=== PATIENT | male | born 1965 | race Caucasian/White ===

== ENCOUNTER 2016-10-24 14:40 | Emergency (ER) | payer OTHER ==
[~2016-10-24] VITALS: Ht 170.2 cm; Wt 104.3 kg
[~2016-10-24 14:40] MED LIST: ASPIRIN325 M2 PO; CIPROFLOXACIN500 MG PO; LISINOPRIL10 MG PO; METOPROLOL SUCC25 MG PO; SIMVASTATIN40 MG PO
--- NOTE | 2016-10-24 15:06 | ED CARDIAC/CP/PALPITATIONS ---
History of Present Illness General Chief Complaint: Chest Pain Stated Complaint: CHEST PAIN, FELT SOMTHING POP ON L SIDE OF CHEST Source: patient, family Exam Limitations: no limitations Allergies Coded Allergies: propoxyphene (From DARVON) (RASH - WAS SMALL 10/24/16) venom-honey bee (ANAPHYLAXIS 10/24/16) Triage Note: PT TO ED FOR COUGH AND "SOMETHING POPPED ON MY L SIDE WHEN I WAS COUGHING LAST NIGHT" C/O 10/10 L LOWER CHEST PAIN ON COUGH AND INSPIRATION, REPRODUCIBLE. Triage Nurses Notes Reviewed? yes Onset: Abrupt Duration: hour(s): (FEW) Timing: single episode today Quality/Severity: severe, sharp Location: LEFT LOWER RIBS Radiation: no radiation Associated Symptoms: COUGH HPI: This is a 51-year-old male with worsening respiratory symptoms for the past 1 week diagnosed with bronchitis on by his PCP who presents to the ER with chief complaint of exquisite left-sided rib pain since yesterday after having violent episodes of coughing. He is on Biaxin and prednisone from his primary care doctor and was very severe and his primary care doctor advised him to go to a walk-in clinic. He states at the walk-in clinic they evaluated him and told him to come here for further evaluation. Patient denies any fever or chills. He denies any productive cough. He is a nonsmoker. No previous history of asthma or COPD. Pain is worse with deep inspiration or movement. (JUAN COOPER,[facility]) Vital Signs & Intake/Output Vital Signs & Intake/Output Vital Signs Date Time Temp Pulse Resp B/P Pulse O2 O2 Flow FiO2 Ox Delivery Rate 10/24 2010 97.7 81 18 137/76 92 10/24 1830 80 20 144/82 97 10/24 1730 97.0 80 20 142/80 96 Room Air 10/24 1601 94 10/24 1458 98.1 99 16 144/90 95 Room Air ED Intake and Output 10/25 0000 10/24 1200 Intake Total 120 Output Total 300 Balance -180 Intake, Oral 120 Output, Urine 300 Patient 230 lb Weight Reconcile Medications Albuterol Sulfate (Proventil Hfa) (Unknown Strength) HFA.AER.AD (Unknown Dose) UNKNOWN (Reported) Albuterol Sulfate (Ventolin Hfa) 90 MCG HFA.AER.AD 2 PUF INH Q4-6 PRN PRN WHEEZE Aspirin (Aspirin*) 325 MG TABLET 1 TAB PO DAILY HEART/BLOOD (Reported) Clarithromycin 500 MG TABLET 1 TAB PO BID ANTIBIOTIC (Reported) Ibuprofen 800 MG TABLET 1 TAB PO TID PAIN Lisinopril 10 MG TABLET 1 TAB PO DAILY BP (Reported) Metoprolol Succinate 50 MG TAB.ER.24H 1 TAB PO DAILY HEART/BP (Reported) Omeprazole 40 MG CAPSULE.DR 1 CAP PO DAILY GI (Reported) Oxycodone HCl/Acetaminophen (Percocet 5-325 MG Tablet) 5 MG-325 MG TABLET 1 TAB PO 4XDP PRN PAIN TEN...[id number] Prednisone (Unknown Strength) TABLET (Unknown Dose) PO AD STEROID TAPER ( Reported) Promethazine/Phenyleph/Codeine (Promethazine Vc-Codeine Syrup) 6.25 MG-5 MG-10 MG/5 ML SYRUP 5-10 ML PO Q6 COUGH ONE HUNDRED TWENTY CC'S.... [id number] Simvastatin (Simvastatin*) 40 MG TABLET 1 TAB PO QPM CHOLESTEROL (Reported) Tadalafil (Cialis) 5 MG TABLET 1 TAB PO DAILY BPH (Reported) (MIRELLA COOPER,KHUSHBOO Brennan) Past History Travel History Traveled to [place] past 21 day No Medical History Any Pertinent Medical History? see below for history Neurological: NONE EENT: NONE Cardiovascular: hypertension, HIGH CHOLESTEROL Respiratory: bronchitis Gastrointestinal: NONE Hepatic: NONE Renal: NONE Musculoskeletal: NONE Psychiatric: NONE Endocrine: NONE Blood Disorders: NONE Cancer(s): NONE Surgical History Surgical History: non-contributory Psychosocial History Who do you live with Mother Services at Home None What is your primary language Hebrew Tobacco Use: Never used ETOH Use: denies use Illicit Drug Use: denies illicit drug use Family History Family History, If Any: FATHER ([place] at age 61). grandfather (cancer of all glands). grandmother (cancer in the kidney and brain). Hx Contributory? Yes (JUAN COOPER,TOMEKA) Review of Systems Review of Systems Constitutional: Denies: chills, fever. EENTM: Reports: no symptoms. Respiratory: Reports: cough, short of breath. Denies: sputum production. Cardiovascular: Reports: chest pain. GI: Denies: abdominal pain. Genitourinary: Reports: no symptoms. Musculoskeletal: Reports: no symptoms. Skin: Reports: no symptoms. Neurological/Psychological: Reports: anxiety. Hematologic/Endocrine: Denies: bruising, bleeding, polyuria, polydipsia. Immunologic/Allergic: Reports: no symptoms. All Other Systems: Reviewed and Negative (JUAN COOPER,[place]OME[place]) Physical Exam Physical Exam General Appearance: well developed/nourished, alert, awake, anxious, severe distress, obese Head: atraumatic, normal appearance Eyes: Bilateral: normal appearance, PERRL, EOMI. Ears, Nose, Throat: normal pharynx, normal ENT inspection, hearing grossly normal Neck: normal inspection, supple, full range of motion Respiratory: normal breath sounds, LEFT CHEST WALL TENDERNESS Cardiovascular: regular rate/rhythm Peripheral Pulses: 2+ radial (R), 2+ radial (L) Gastrointestinal: normal bowel sounds, soft, non-tender Extremities: normal inspection, normal capillary refill, normal range of motion, no edema Neurologic/Psych: no motor/sensory deficits, awake, alert, oriented x 3 Skin: intact, normal color, warm/dry Core Measures ACS in differential dx? No Severe Sepsis Present: No Septic Shock Present: No (TOMEKA MARTINEZ MD) Progress Differential Diagnosis: pneumothorax, pulmonary embolism, rib fracture Diagnostic Imaging: Viewed by Me: Radiology Read, CT Scan. Discussed w/RAD: Radiology Read, CT Scan. Radiology Impression: PATIENT: MADELYN MARQUES PRESENT AGE: 51 PATIENT ACCOUNT NO: [id number] : 65 LOCATION: [facility] ORDERING PHYSICIAN: TOMEKA MARTINEZ MD SERVICE DATE: 10/24/16 EXAM TYPE: RAD - XRY-RIBS UNILATERAL-LEFT EXAMINATION: XR RIBS, LEFT CLINICAL INFORMATION: Left-sided rib pain and cough. COMPARISON: Chest x-ray 10/24/2016. TECHNIQUE: 4 views of the left-sided ribs were obtained. FINDINGS: No acute left-sided rib fractures are identified. There is no appreciable cortical destruction or periosteal reaction of the left-sided ribs. Soft tissues appear unremarkable. IMPRESSION: No acute left-sided rib fractures. DICTATED BY: BIBI ESCOBEDO MD DATE/TIME DICTATED:10/24/161600 LIBRARY MANAGER:SUSU DATE/TIME TRANSCRIBED:10/24/161600 CONFIDENTIAL, DO NOT COPY WITHOUT APPROPRIATE AUTHORIZATION. <Electronically signed in Other Vendor System> SIGNED BY: FANNY COOPER,BIBI 10/24/16 1606 Initial ED EKG: NSR Hand-Off Endorsed To: KHUSHBOO VU MD Endorsed Time: 1918 Pending: CT (PE ANGIO) (JUAN COOPER,TOMEKA) Plan of Care: Orders Procedure Date/time Status COMPREHENSIVE METABOLIC PANEL 10/24 1531 Complete CBC WITHOUT DIFFERENTIAL 10/24 1531 Complete RT ED ORDERS 10/24 1528 Active EKG 10/24 1441 Active Current Medications Sig/Indigo Start time Last Medication Dose Stop Time Status Admin Diazepam 2 MG ONCE ONE 10/24 1630 CAN (Valium) 10/24 1631 Diazepam 5 MG ONCE ONE 10/24 1530 CAN (Valium) 10/24 1531 Ketorolac 60 MG ONCE ONE 10/24 1530 CAN Tromethamine 10/24 1531 (Toradol) Laboratory Tests 10/24/16 1610: Anion Gap 12, Estimated GFR > 60, BUN/Creatinine Ratio 20.0, Glucose 128 H, Calcium 9.5, Total Bilirubin 0.7, AST 31, ALT 64, Alkaline Phosphatase 73, Total Protein 7.1, Albumin 4.3, Globulin 2.8, Albumin/Globulin Ratio 1.5, CBC w Diff NO MAN DIFF REQ, RBC 5.49, MCV 85.9, MCH 28.5, RDW 13.8, MPV 8.0, Gran % 73.2, Lymphocytes % 17.7 L, Monocytes % 8.4, Eosinophils % 0, Basophils % 0.7, Absolute Granulocytes 11.9 H, Absolute Lymphocytes 2.9, Absolute Monocytes 1.4 H, Absolute Eosinophils 0, Absolute Basophils 0.1, PUBS MCHC 33.2 Radiology Impression: ct angio, chest... no pe. Comments: PATIENT: MADELYN MARQUES PRESENT AGE: 51 PATIENT ACCOUNT NO: [id number] : 65 LOCATION: [facility] ORDERING PHYSICIAN: TOMEKA MARTINEZ MD SERVICE DATE: 10/24/16-1625 EXAM TYPE: CAT - CTA CHEST-PULMONARY EMBOLISM EXAMINATION: CT ANGIOGRAM CHEST WITH AND WITHOUT CONTRAST (CT PULMONARY ANGIOGRAM FOR PE) CLINICAL INFORMATION: Severe left-sided pleuritic pain. COMPARISON: No prior chest CT scan for comparison. TECHNIQUE: Prior to contrast administration, noncontrast localization images were obtained. Subsequently, multidetector volumetric imaging was performed from the thoracic inlet to below the diaphragms following the administration of 85 mL Optiray 350 intravenous contrast. No contrast reaction reported. Sagittal, coronal, and MIP oblique sagittal reformatted images were obtained on the CT workstation, uploaded to PACS, and reviewed. Total exam dose-length product 563 mGy-cm. FINDINGS: QUALITY OF STUDY/CONTRAST BOLUS: Contrast bolus timing was mildly suboptimal, with timing more optimally tailored for aortic evaluation. PULMONARY ARTERIES: No convincing pulmonary embolism. No ectasia of the main pulmonary artery. THORACIC AORTA: No aneurysm or dissection. LUNG: There is mild peribronchial thickening bilaterally. Mild dependent parenchymal changes and mild hazy opacification within the left lung base, favored to represent atelectasis, however subtle left lower lobe pneumonitis is not excluded. PLEURA: No pleural effusion or pneumothorax. MEDIASTINUM: Normal heart size. Scattered coronary artery calcification. No pericardial effusion. No hilar or mediastinal lymphadenopathy. No evidence of septal bowing or right heart strain. CHEST WALL/AXILLA: No axillary or internal mammary lymphadenopathy. OSSEOUS STRUCTURES: No acute or suspicious osseous abnormality. UPPER ABDOMEN: Hepatic steatosis. No acute intra-abdominal abnormalities. No reflux of contrast into the hepatic veins to suggest elevated right heart pressures. IMPRESSION: 1. Somewhat suboptimal contrast bolus timing. No evidence of pulmonary embolism. 2. Bibasilar dependent opacification consistent with atelectasis. Asymmetric mild groundglass opacification of the left lung base may represent atelectasis or subtle pneumonia. 3. Scattered coronary artery calcification. 4. Hepatic steatosis. DICTATED BY: JOSE FRANK MD DATE/TIME DICTATED:10/24/161858 LIBRARY MANAGER:SUSU DATE/TIME TRANSCRIBED:10/24/161858 CONFIDENTIAL, DO NOT COPY WITHOUT APPROPRIATE AUTHORIZATION. <Electronically signed in Other Vendor System> SIGNED BY: JOSE FRANK MD 10/24/161931 (MIRELLA COOPER,KHUSHBOO Brennan) Departure Departure Disposition: STILL A PATIENT Condition: Stable Clinical Impression Primary Impression: Bronchitis Secondary Impressions: Contusion of rib on left side Referrals: SIENA COOPER,EUGENE Marti (PCP/Family) Departure Forms: Customer Survey General Discharge Information (JUAN COOPER,TOMEKA) Departure Prescriptions: Current Visit Scripts Ibuprofen 1 TAB PO TID #90 TAB Oxycodone HCl/Acetaminophen (Percocet 5-325 MG Tablet) 1 TAB PO 4XDP PRN PAIN #10 TAB TEN...[id number] Albuterol Sulfate (Ventolin Hfa) 2 PUF INH Q4-6 PRN PRN WHEEZE #1 INHAL Ref 1 Promethazine/Phenyleph/Codeine (Promethazine Vc-Codeine Syrup) 5-10 ML PO Q6 #120 ML ONE HUNDRED TWENTY CC'S.... [id number] PA/[employer]PER[employer] Co-Sign Statement Statement: ED Attending supervision documentation- x] I saw and evaluated the patient. I have also reviewed all the pertinent lab results and diagnostic results. I agree with the findings and the plan of care as documented in the PA's/[employer]'s documentation. pt with reproducible chest wall tenderness. safe for discharge. [] I have reviewed the ED Record and agree with the PA's/[employer]'s documentation. [] Additions or exceptions (if any) to the PAs/SUPER[employer]'s note and plan are summarized below: [] (MIRELLA COOPER,KHUSHBOO Brennan) Critical Care Note Critical Care Note Critical Care Time: non-applicable (JUAN COOPER,TOMEKA)
--- NOTE | 2016-10-24 15:22 | RADIOLOGY REPORT ---
EXAMINATION: XR CHEST CLINICAL INFORMATION: Cough. COMPARISON: Chest radiography 07/12/2012. TECHNIQUE: 2 views of the chest were obtained. FINDINGS: No new significant abnormality is noted involving the heart, lungs, mediastinum, bony thorax or soft tissues. IMPRESSION: No evidence of pneumonia.
--- NOTE | 2016-10-24 16:06 | RADIOLOGY REPORT ---
EXAMINATION: XR RIBS, LEFT CLINICAL INFORMATION: Left-sided rib pain and cough. COMPARISON: Chest x-ray 10/24/2016. TECHNIQUE: 4 views of the left-sided ribs were obtained. FINDINGS: No acute left-sided rib fractures are identified. There is no appreciable cortical destruction or periosteal reaction of the left-sided ribs. Soft tissues appear unremarkable. IMPRESSION: No acute left-sided rib fractures.
[2016-10-24 16:28] LABS: ABSOLUTE BASOPHIL COUNT 0.1 /CUMM (0.0-0.2); ABSOLUTE EOSINOPHIL COUNT 0 /CUMM (0.0-0.7); ABSOLUTE GRANULOCYTE CT 11.9 /CUMM (1.4-6.5); ABSOLUTE LYMPH COUNT 2.9 /CUMM (1.2-3.4); ABSOLUTE MONOCYTE COUNT 1.4 /CUMM (0.10-0.60); BASOPHIL % 0.7 % (0.0-2.0); EOSINOPHIL % 0 % (0-5); GRANULOCYTE % 73.2 % (42.2-75.2); HEMATOCRIT 47.2 % (42-52); MEAN CORPUSCULAR HGB 28.5 PG (27.0-31.0); MEAN CORPUSCULAR HGB CONC 33.2 G/DL (33.0-37.0); MEAN CORPUSCULAR VOLUME 85.9 FL (80.0-94.0); PLATELET COUNT 316 /CUMM (130-400); RBC DISTRIBUTION WIDTH 13.8 % (11.5-14.5); RED BLOOD CELL CT 5.49 /CUMM (4.70-6.10); WHITE BLOOD CELL COUNT 16.3 /CUMM (4.8-10.8)
[2016-10-24] MEDS ORDERED: LISINOPRIL10 M1 PO (17:32)
[2016-10-24] MEDS ORDERED: SIMVASTATIN40 M1 PO (17:32)
[2016-10-24] MEDS ORDERED: METOPROLOL SUCC50 M2 PO (17:33)
[2016-10-24] MEDS ORDERED: OMEPRAZOLE40 M1 PO (17:33)
[2016-10-24] MEDS ORDERED: CLARITHROMYCIN500 M1 PO (17:34)
[2016-10-24] MEDS ORDERED: PREDNISONE10 M2 PO (17:35)
[2016-10-24] MEDS ORDERED: CIALIS5 M1 PO (17:35)
[2016-10-24] MEDS ORDERED: PROVENTIL HFA6.7 GM (17:37)
--- NOTE | 2016-10-24 19:32 | CT SCAN REPORT ---
EXAMINATION: CT ANGIOGRAM CHEST WITH AND WITHOUT CONTRAST (CT PULMONARY ANGIOGRAM FOR PE) CLINICAL INFORMATION: Severe left-sided pleuritic pain. COMPARISON: No prior chest CT scan for comparison. TECHNIQUE: Prior to contrast administration, noncontrast localization images were obtained. Subsequently, multidetector volumetric imaging was performed from the thoracic inlet to below the diaphragms following the administration of 85 mL Optiray 350 intravenous contrast. No contrast reaction reported. Sagittal, coronal, and MIP oblique sagittal reformatted images were obtained on the CT workstation, uploaded to PACS, and reviewed. Total exam dose-length product 563 mGy-cm. FINDINGS: QUALITY OF STUDY/CONTRAST BOLUS: Contrast bolus timing was mildly suboptimal, with timing more optimally tailored for aortic evaluation. PULMONARY ARTERIES: No convincing pulmonary embolism. No ectasia of the main pulmonary artery. THORACIC AORTA: No aneurysm or dissection. LUNG: There is mild peribronchial thickening bilaterally. Mild dependent parenchymal changes and mild hazy opacification within the left lung base, favored to represent atelectasis, however subtle left lower lobe pneumonitis is not excluded. PLEURA: No pleural effusion or pneumothorax. MEDIASTINUM: Normal heart size. Scattered coronary artery calcification. No pericardial effusion. No hilar or mediastinal lymphadenopathy. No evidence of septal bowing or right heart strain. CHEST WALL/AXILLA: No axillary or internal mammary lymphadenopathy. OSSEOUS STRUCTURES: No acute or suspicious osseous abnormality. UPPER ABDOMEN: Hepatic steatosis. No acute intra-abdominal abnormalities. No reflux of contrast into the hepatic veins to suggest elevated right heart pressures. IMPRESSION: 1. Somewhat suboptimal contrast bolus timing. No evidence of pulmonary embolism. 2. Bibasilar dependent opacification consistent with atelectasis. Asymmetric mild groundglass opacification of the left lung base may represent atelectasis or subtle pneumonia. 3. Scattered coronary artery calcification. 4. Hepatic steatosis.
[2016-10-24 20:11] VITALS: BP 137/76
[2016-10-24] MEDS ORDERED: PERCOCET 5-3251 EACH PO (20:33)
[2016-10-24] MEDS ORDERED: PROMETHAZINE V118 M2 PO (20:33)
[2016-10-24] MEDS ORDERED: IBUPROFEN800 M1 PO (20:33)
[2016-10-24] MEDS ORDERED: VENTOLIN HFA18 GM INH (20:33)
== END 2016-10-24 20:53 ==
LOC: ERH 14:40
PROVIDERS: Emergency Medicine
DX: S20.222A Contusion of left back wall of thorax, initial encounter (principal); J40 Bronchitis, not specified as acute or chronic; X50.9XXA Other and unspecified overexertion or strenuous movements or postures, initial encounter; Y93.89 Activity, other specified; Y92.9 Unspecified place or not applicable
CPT/HCPCS: 1263; 71100-LT; 93005; 93010; 96374; 96375; 96376; J1885; J3360